=== PATIENT | male | born 1975 | race Caucasian/White ===

== ENCOUNTER 2017-04-20 15:30 | Emergency (ER) | payer OTHER ==
[2017-04-20 15:45] VITALS: TEMP 98.4
--- NOTE | 2017-04-20 16:22 | EDPHY ---
H & P Time Seen by Provider: 04/20/17 16:20 HPI/ROS: CHIEF COMPLAINT: Abdominal pain HISTORY OF PRESENT ILLNESS: This patient is a 42-year-old male who presents to the Emergency Department complaining of acute onset abdominal pain localized to the left of his umbilicus beginning three days prior to arrival. The pain presents as a brief, moderate to severe stabbing sensation presenting every 10- 90 seconds and subsiding completely between episodes. Pain radiates to his lower abdomen at times. His pain is not exacerbated by movement. He denies associated symptoms including nausea, vomiting, or urinary complaints. No fever or chills. He describes his complaints as similar to the pain he experienced following his vasectomy in August 2016. He denies any additional pertinent medical history. REVIEW OF SYSTEMS: Constitutional: No fever, no chills Eyes: No visual changes ENT: No sore throat Respiratory: No cough, no shortness of breath Cardiac: No chest pain Gastrointestinal: As in HPI Genitourinary: No hematuria, no dysuria Musculoskeletal: No leg pain or swelling Skin: No rash Neurological: No headache, no weakness Psychiatric: No depression Past Medical/Surgical History: Vasectomy Social History: with children Smoking Status: Never smoked Physical Exam: General Appearance: Alert, no distress Eyes: Pupils equal and round, no conjunctival pallor ENT, Mouth: Mucous membranes moist Neck: Normal inspection Respiratory: Lungs are clear to auscultation Cardiovascular: Regular rate and rhythm Gastrointestinal: Abdomen is soft and non-tender Back: Normal inspection, no CVA tenderness Neurological: A&O, nonfocal, normal gait Skin: Warm and dry, no rash Extremities: Normal inspection Psychiatric: Mood and affect normal Constitutional: Initial Vital Signs Temperature (C) 36.9 C 04/20/17 15:43 Heart Rate 61 04/20/17 15:43 Respiratory Rate 16 04/20/17 15:43 Blood Pressure 121/70 H 04/20/17 15:43 O2 Sat (%) 97 04/20/17 15:43 O2 Delivery Mode Room Air Allergies/Adverse Reactions: Sulfa (Sulfonamide Antibiotics) Allergy (Mild, Verified 07/30/13 21:59) Home Medications: Medication Instructions Recorded Cephalexin [Keflex (RX)] 500 mg PO QID #40 cap 07/30/13 Medical Decision Making - Diagnostics Imaging Results: Renal ultrasound read by Dr. Seth Kendall is normal. ED Course/Re-evaluation: 42-year-old normally healthy male presents with complaint of pinpoint left- sided abdominal pain presenting in pulsing waves over the past three days with no associated complaints. He is alert and well-appearing on presentation. Abdomen is non-tender. Possible renal colic. Will proceed with labs and UA. Labs obtained and are unremarkable. UA obtained and is normal. IV established. 15mg IV Toradol administered. I discussed initial lab and UA results with the patient. Given the consistent localization and quality of his pain, we will proceed with US of the left kidney. US obtained and is normal. Unclear etiology of pain. There is no evidence for a serious etiology of abdominal pain. The patient is given a referral to a local PCP to establish care and to a local certified bench jeweler technician to see as needed for persistent pain. He understands that he should return immediately for worsening pain and follow-up with PCP for further evaluation. Customary return precautions were given prior to discharge. The patient was discharged home in good condition. Will take ibuprofen 3 times daily for pain control. Abdomen remained soft and nontender on discharge. Differential Diagnosis: Differential diagnosis includes though it is not limited to appendicitis, cholecystitis, diverticulitis, pyelonephritis, bowel perforation, small bowel obstruction. - Data Points Laboratory Results: Laboratory Results 04/20/17 16:30 04/20/17 16:30 Medications Given: Discontinued Medications Ketorolac Tromethamine (Toradol) 15 mg IVP EDNOW ONE Stop: 04/20/17 17:00 Last Admin: 04/20/17 17:14 Dose: 15 mg Departure - Departure Disposition: Home, Routine, Self-Care Clinical Impression: Abdominal pain Qualifiers: Abdominal location: periumbilical Qualified Code(s): R10.33 - Periumbilical pain Condition: Good Instructions: Abdominal Pain (ED) Additional Instructions: 1. Take 600mg Ibuprofen every 6 hours as needed for pain. 2. Follow-up with your primary care provider as soon as possible this week if your pain does not improve. 3. Return to the Emergency Department with worsening pain, vomiting, diarrhea, blood in vomit or stool, or for other serious concerns. 4. We have included a referral to the on-call certified bench jeweler technician who you may choose to follow-up with if your pain persists. Referrals: Nathaniel Norris MD [Medical Doctor] - As per Instructions Daisy Jernigan MD [Medical Doctor] - As per Instructions Report Scribed for: Deepthi Burgess Report Scribed by: Tanesha Aguilar Date of Report: 04/20/17 Time of Report: 16:22 Physician Review and Approval Statement: 04/20/17 16:22 Portions of this note were transcribed by a medical biller. I personally performed a history, physical exam, medical decision making, and confirmed accuracy of information the transcribed note.
[2017-04-20 16:39] VITALS: BP 118/67; PULSE 57; RESP 14; O2SAT 99
[2017-04-20 16:43] LABS: % IMMATURE GRANULYOCYTES 0.3 % (0.0-1.1); ABSOLUTE IMMATURE GRANULOCYTES 0.03 10^3/uL (0.00-0.10); ADD DIFF? NO; ADD MORPH? NO; ADD SCAN? NO; ATYPICAL LYMPHOCYTE FLAG 10 (0-99); FRAGMENT RBC FLAG 0 (0-99); HEMATOCRIT 40.6 % (40.0-51.0); HEMOGLOBIN 14.2 g/dL (13.7-17.5); LEFT SHIFT FLG 0 (0-99); LIPEMIA HEMOLYSIS FLAG 90 (0-99); MEAN CELL HEMOGLOBIN 32.9 pg (27.9-34.1); MEAN CELL VOLUME 94.2 fL (81.5-99.8); MEAN PLATELET VOLUME 9.4 fL (8.7-11.7); PLATELET CLUMPS FLAG 0 (0-99); PLATELET COUNT 193 10^3/uL (150-400); RED BLOOD CELL COUNT 4.31 10^6/uL (4.40-6.38); RED CELL DISTRIBUTION WIDTH 12.2 % (11.5-15.2)
[2017-04-20 16:46] LABS: COLOR YELLOW; LEUKOCYTE ESTERASE,URINE NEGATIVE (NEGATIVE); NITRITE,URINE NEGATIVE (NEGATIVE)
[2017-04-20 16:53] LABS: ANION GAP 11 mEq/L (8-16); CALCIUM 9.9 mg/dL (8.5-10.4); CARBON DIOXIDE 23 mEq/l (22-31); CHLORIDE 104 mEq/L (97-110); CREATININE 1.2 mg/dL (0.7-1.3); GLOMERULAR FILTRATION RATE > 60; GLUCOSE 85 mg/dL (70-100); POTASSIUM 4.3 mEq/L (3.5-5.2); SODIUM 138 mEq/L (134-144)
[2017-04-20] MEDS ORDERED: KETOROLAC 30 MG/1 ML SDV IVP ONE (16:59)
== END 2017-04-20 18:15 | disposition home or self-care (01) ==
DX: R10.33 Periumbilical pain (principal)
CPT/HCPCS: 96374; J1885

== ENCOUNTER → 2018-02-14 | Outpatient (CLI) | payer OTHER | LOC: BMCIMAGING 14:34 | PROVIDERS: ATTEND Family Medicine | DX: J40 Bronchitis, not specified as acute or chronic (principal) ==